=== PATIENT | female | born 1990 ===

== ENCOUNTER 2024-03-31 09:29 | Outpatient (REF) | payer SELFPAY | END 2024-03-31 09:30 | disposition home or self-care (01) | LOC: HO.HAP 09:29 | PROVIDERS: Visit Provider Nurse Practitioner Adult Health | DX: Z13.89 Encounter for screening for other disorder (principal) ==

== ENCOUNTER 2024-04-13 09:39 | Outpatient (REF) | payer SELFPAY | END 2024-04-13 09:40 | disposition home or self-care (01) | LOC: HO.HAP 09:39 | PROVIDERS: Visit Provider Nurse Practitioner Adult Health | DX: Z13.89 Encounter for screening for other disorder (principal) ==